=== PATIENT | female | born 1955 | race Two or more races ===

== ENCOUNTER 2017-11-24 12:41 | Outpatient (CLI) | payer OTHER | END 2017-11-24 12:47 | disposition home or self-care (01) | LOC: NUCLEAR 12:41 | DX: M81.0 Age-related osteoporosis without current pathological fracture (principal) ==

== ENCOUNTER 2019-09-29 12:33 | Outpatient (CLI) | payer OTHER | END 2019-09-29 12:35 | disposition home or self-care (01) | LOC: MAMO-SONO 12:33 | PROVIDERS: ATTEND General Practice | DX: Z12.31 Encounter for screening mammogram for malignant neoplasm of breast (principal) ==

== ENCOUNTER 2019-10-04 08:53 | Outpatient (CLI) | payer OTHER | END 2019-10-04 09:41 | disposition home or self-care (01) | LOC: SONOGRAMA 08:53 | PROVIDERS: ATTEND Pathology Anatomic Pathology & Clinical Pathology | DX: E04.1 Nontoxic single thyroid nodule (principal) ==

== ENCOUNTER 2020-03-31 07:50 | Emergency (ER) | payer OTHER ==
[~2020-03-31] VITALS: Ht 157.5 cm; Wt 50.8 kg
[2020-03-31] MEDS ORDERED: RESTORIL30 MG PO (08:07)
[2020-03-31] MEDS ORDERED: LEVOTHYROXINE50 MCG (08:10)
[2020-03-31] MEDS ORDERED: TRAZODONE HCL50 MG (08:10)
[2020-03-31] MEDS ORDERED: CLONAZEPAM0.5 MG (08:11)
[2020-03-31] MEDS ORDERED: ATORVASTATIN CA40 MG (08:11)
== END 2020-03-31 12:15 | disposition home or self-care (01) ==
LOC: ER 07:50
DX: K29.60 Other gastritis without bleeding (principal); F32.89 Other specified depressive episodes; T42.4X5A Adverse effect of benzodiazepines, initial encounter; Y92.89 Other specified places as the place of occurrence of the external cause

== ENCOUNTER 2020-06-12 09:42 | Outpatient (CLI) | payer OTHER ==
[~2020-06-12 09:42] MED LIST: ATORVASTATIN CA40 MG; CLONAZEPAM0.5 MG; LEVOTHYROXINE50 MCG; RESTORIL30 MG PO; TRAZODONE HCL50 MG
== END 2020-06-12 09:44 | disposition home or self-care (01) ==
LOC: LAB 09:42
PROVIDERS: ATTEND Internal Medicine Cardiovascular Disease
DX: I10 Essential (primary) hypertension (principal); E11.9 Type 2 diabetes mellitus without complications; E03.8 Other specified hypothyroidism; E78.2 Mixed hyperlipidemia; Z12.11 Encounter for screening for malignant neoplasm of colon; E55.9 Vitamin D deficiency, unspecified

== ENCOUNTER → 2020-06-13 13:48 | Outpatient (CLI) | payer OTHER | END | disposition home or self-care (01) | LOC: LAB 13:48 | PROVIDERS: ATTEND Internal Medicine Cardiovascular Disease | DX: I10 Essential (primary) hypertension (principal); Z12.11 Encounter for screening for malignant neoplasm of colon; E11.9 Type 2 diabetes mellitus without complications; E03.8 Other specified hypothyroidism; E78.2 Mixed hyperlipidemia; E55.9 Vitamin D deficiency, unspecified ==

== ENCOUNTER → 2020-07-11 14:39 | Outpatient (CLI) | payer OTHER | END | disposition home or self-care (01) | LOC: NUCLEAR 14:30 | PROVIDERS: ATTEND Internal Medicine Cardiovascular Disease | DX: M81.0 Age-related osteoporosis without current pathological fracture (principal) ==

== ENCOUNTER 2022-04-22 21:21 | Emergency (ER) | payer OTHER ==
[~2022-04-22] VITALS: Ht 152.4 cm; Wt 44.9 kg
== END 2022-04-23 19:34 | disposition home or self-care (01) ==
LOC: ER 21:21
DX: R07.9 Chest pain, unspecified (principal); Z20.822 Contact with and (suspected) exposure to COVID-19; J44.9 Chronic obstructive pulmonary disease, unspecified